=== PATIENT | male | born 1960 | race Caucasian/White ===

== ENCOUNTER 2021-02-19 11:27 | Emergency (ER) | payer MEDICARE ==
[~2021-02-19] VITALS: Ht 175.3 cm; Wt 74.0 kg
[2021-02-19 12:17] VITALS: BP 178/94
--- NOTE | 2021-02-19 12:24 | NUR ---
BS 117
[2021-02-19] MEDS ORDERED: QUET25TA PO (12:36)
[2021-02-19] MEDS ORDERED: GABA300C PO (12:36)
[2021-02-19] MEDS ORDERED: QUET50TA15 PO (14:16)
== END 2021-02-19 14:07 | disposition home or self-care (01) ==
LOC: ER 11:28
DX: F41.9 Anxiety disorder, unspecified (principal); F51.01 Primary insomnia; R42 Dizziness and giddiness; R07.89 Other chest pain; R06.02 Shortness of breath; Z79.899 Other long term (current) drug therapy
CPT/HCPCS: 82948; 99283

== ENCOUNTER 2021-04-14 15:30 | Outpatient (CLI) | payer MEDICARE, MEDICAID ==
[~2021-04-14 15:30] MED LIST: GABA300C PO; QUET50TA15 PO
== END 2021-04-14 23:59 | disposition home or self-care (01) ==
LOC: VAS 15:30
PROVIDERS: ATTEND Surgery
DX: R22.42 Localized swelling, mass and lump, left lower limb (principal)
CPT/HCPCS: 93971

== ENCOUNTER 2022-03-16 13:38 | Outpatient (CLI) | payer MEDICARE, MEDICAID | END 2022-03-16 23:59 | disposition home or self-care (01) | LOC: RAD 13:38 | PROVIDERS: ATTEND Family Medicine | DX: I08.0 Rheumatic disorders of both mitral and aortic valves (principal); M79.89 Other specified soft tissue disorders; R06.89 Other abnormalities of breathing | CPT/HCPCS: 93306 ==

== ENCOUNTER 2022-05-22 17:25 | Emergency (ER) | payer MEDICARE, MEDICAID ==
[~2022-05-22] VITALS: Ht 175.3 cm; Wt 77.3 kg
[2022-05-22 17:31] VITALS: BP 136/81
[2022-05-22] MEDS ORDERED: dexamethasone sod phosphate 10mg/ml inj PO STA (18:26)
[2022-05-22] MEDS ORDERED: PRED20TA PO (18:33)
== END 2022-05-22 18:38 | disposition home or self-care (01) ==
LOC: ER 17:25
DX: M25.531 Pain in right wrist (principal); M25.532 Pain in left wrist; F41.9 Anxiety disorder, unspecified; Z79.899 Other long term (current) drug therapy
CPT/HCPCS: 99283; J1100

== ENCOUNTER 2022-08-22 08:38 | Emergency (ER) | payer MEDICARE, MEDICAID ==
[~2022-08-22] VITALS: Ht 167.6 cm; Wt 77.3 kg
[2022-08-22 08:38] VITALS: BP 141/86
[2022-08-22] MEDS ORDERED: dexamethasone sod phosphate 10mg/ml inj PO STA (09:19)
[2022-08-22] MEDS ORDERED: ketorolac trometh. 30mg/ml inj. IV ONE (09:20)
[2022-08-22] MEDS ORDERED: PRED20TA PO (09:27)
[2022-08-22] MEDS ORDERED: ketorolac trometh inj. 60 MG/2 ML VIAL IM ONE (09:35)
== END 2022-08-22 09:43 | disposition home or self-care (01) ==
LOC: ER 08:38
DX: M25.562 Pain in left knee (principal)
CPT/HCPCS: 96372; 99283; J1100; J1885

== ENCOUNTER 2022-10-16 06:10 | Emergency (ER) | payer MEDICARE, MEDICAID ==
[~2022-10-16] VITALS: Ht 175.3 cm; Wt 78.0 kg
[2022-10-16 06:27] VITALS: BP 103/72; PULSE 89; TEMP 96.7; O2SAT 96
[2022-10-16] MEDS ORDERED: methylPREDNISolone sod succ/PF 40mg inj. IM ONE ×2 (07:50→08:15)
[2022-10-16] MEDS ORDERED: ketorolac trometh inj. 60 MG/2 ML VIAL IM ONE (07:50)
[2022-10-16] MEDS ORDERED: ALLO100T PO (07:57)
[2022-10-16] MEDS ORDERED: COLC0.6T72 PO (07:58)
[2022-10-16] MEDS ORDERED: ketorolac trometh. 30mg/ml inj. IM ONE (08:00)
[2022-10-16] MEDS ORDERED: methylPREDNISolone sod succ 125mg/2ml vial IM ONE (08:00)
[2022-10-16 08:19] VITALS: RESP 16
== END 2022-10-16 08:26 | disposition home or self-care (01) ==
LOC: ER 06:10
DX: M10.9 Gout, unspecified (principal); M19.90 Unspecified osteoarthritis, unspecified site; F41.9 Anxiety disorder, unspecified; Z79.899 Other long term (current) drug therapy
CPT/HCPCS: 73610; 73630; 96372; 99284; J1885; J2920

== ENCOUNTER 2024-06-28 20:54 | Emergency (ER) | payer MEDICARE, MEDICAID ==
[~2024-06-28] VITALS: Ht 172.7 cm; Wt 79.5 kg
[~2024-06-28 20:54] MED LIST changes: +COLC0.6T72 PO
[2024-06-29] MEDS: oxyCODONE IR 5mg (immed. release) tablet PO ONE (01:14)
[2024-06-29] MEDS: fentaNYL/PF 50MCG/1 ML 2ML syringe IV ONE ×4 (02:18→04:05)
[2024-06-29] MEDS: propofol 10mg/ml 20ml vial IV ONE (03:40)
--- NOTE | 2024-06-29 03:52 | RADIOLOGY REPORT ---
Clinical History shoulder injury ANTERIORLY DISLOCATED Comparison None Technique: Two radiographs were submitted for review. Without Contrast ARACELIS BRANDT, [id number] FINDINGS:/IMPRESSION: Anterior inferior dislocation of the right humeral head relative to the glenohumeral fossa. No clear fracture is identified. No radiopaque foreign body seen. This report was electronically signed by Meng Andrews MD on 06/29/2024 3:48:57 AM.
--- NOTE | 2024-06-29 04:56 | Physician Documentation ---
History of Present Illness ~ Chief Complaint: Mechanical Fall Stated Complaint: ARM PAIN Time Seen by MD: 00:36 Primary Medical Doctor: n/a Source: family HPI Patient tripped and fell landing in his right hand complaining of right shoulder pain. No loss of consciousness Tetanus within 5 Years?: Yes Medication Reconciliation Allergies: Coded Allergies: No Known Allergies (Unverified , 06/28/24) Scheduled Colchicine (Colchicine), 1 TAB PO Q12H Gabapentin (Neurontin), 1 CAP PO Q8H Quetiapine Fumarate (Seroquel Xr), 2 TAB PO HS Past Medical History Past Medical History: *ENT*, Arthritis, Anxiety Past Surgical History: no surgical history Alcohol Use: Heavy Drug Use: none Lives with: Family Lives In: Home Review of Systems All Other Systems at this time: Reviewed and Negative Cardiovascular: Denies: chest pain Gastrointestinal: Denies: abdominal pain Neurological: Denies: headache Physical Exam Vital Signs: Temperature: 97.5, Source: Oral, Heart Rate: 55, Respiratory Rate: 14, BP: 115/77, Pulse Oximetry: 99, Weight: 79.540 Oxygen Flow Rate: 2.0 Physical Exam Well-appearing no distress Right shoulder deformity limited range of motion Right knee abrasion and contusion intact range of motion weight-bearing intact Procedures Joint Reduction : Reduction By: myself Conscious Sedation: Yes Pre-Procedure NV Exam: within normal limits Post-Procedure NV Exam: within normal limits Post Reduction Film: joint reduced Tolerated Procedure Well?: yes, no complications Moderate Sedation : Pulmonary Assessment: Unremarkable Neurological Assessment: Unremarkable Cardiovascular Assessment: Unremarkable Other Systems: Unremarkable Hx of sedation difficulty?: No Medications: None ASA Class: II-mild disease Mallampati Score/Visibility of: Class 2-uvula Medication Used: Diprivan, Fentanyl Staff Present: primary nurse, computer technical specialist, orthodontic band maker, other Monitoring: manager cardiac, Spo2, patient on oxygen via N/C, suction ready, crash cart at bedside, BVM ready Tolerated Procedure Well?: yes, no complications Progress Results/Orders Results/Orders Orders - THEO GEORGE MD Shoulder, Complete (Min 2 Vws) (06/29/24 00:52) Shoulder, Complete (Min 2 Vws) (06/29/24 04:50) Completed Orders - THEO GEORGE MD Oxycodone Immed Release Tablet (Oxy Ir T (06/29/24 00:40) Fentanyl/Pf (Fentanyl 0.05 Mg/Ml Syringe (06/29/24 01:45) Shoulder, Complete (Min 2 Vws) (06/29/24 00:52) Fentanyl/Pf (Fentanyl 0.05 Mg/Ml Syringe (06/29/24 01:55) Fentanyl/Pf (Fentanyl 0.05 Mg/Ml Syringe (06/29/24 03:40) Propofol Inj (Diprivan Inj) (06/29/24 03:40) Fentanyl/Pf (Fentanyl 0.05 Mg/Ml Syringe (06/29/24 03:50) Shoulder, Complete (Min 2 Vws) (06/29/24 04:50) Medications Received in ER Medications (Trade) Dose Ordered Sig/Quinn Route PRN Reason Start Time Stop Time Status Last Admin Dose Admin (OXY IR tablet) 5 mg ONCE ONCE PO 06/29/24 00:40 06/29/24 00:56 DC 06/29/24 01:14 5 MG (fentaNYL 0.05 MG/ML syringe) 150 mcg ONCE ONCE IV 06/29/24 01:45 06/29/24 01:50 DC 06/29/24 02:18 150 MCG (fentaNYL 0.05 MG/ML syringe) 100 mcg ONCE ONCE IV 06/29/24 03:40 06/29/24 03:57 DC 06/29/24 04:05 100 MCG Vital Signs 06/28/24 06/29/24 06/29/24 06/29/24 20:58 01:14 02:18 04:05 Temp 97.5 Pulse 54 Resp 14 18 16 16 B/P (MAP) 153/93 Pulse Ox 97 06/29/24 06/29/24 06/29/24 06/29/24 04:27 04:33 04:37 04:52 Pulse 64 57 55 53 Resp 31 31 14 16 B/P (MAP) 131/88 115/77 (90) 126/83 (97) Pulse Ox 99 99 O2 Delivery Nasal Cannula Nasal Cannula Nasal Cannula Room Air O2 Flow Rate 2.0 2.0 2.0 0 06/29/24 06/29/24 05:07 05:19 Pulse 52 52 Resp 23 18 B/P (MAP) 132/72 (92) 106/82 (90) Pulse Ox 98 98 O2 Delivery Room Air Room Air O2 Flow Rate 0 EKG/XRAY/CT/US/VASC/MRI Bone/Soft Tissue X-Ray (Ext.) : Additional Comment Shoulder x-ray independently interpreted shows right shoulder anterior dislocation, no humeral fracture, AC joint intact Medical Decision Making Additional Comment Shoulder dislocation, humeral fracture clavicle fracture Departure Disposition: HOME / SELF CARE / HOMELESS Impression: Primary Impression: Shoulder dislocation Qualified Codes: S43.004A - Unspecified dislocation of right shoulder joint, initial encounter Additional Instructions: Please follow up with Orthopedic surgery. Keep your sling on until directed by Orthopedics. Take Tylenol ibuprofen for pain. Avoid any lifting with the right arm Referrals: NAVA GAN MD Signature Scribe Signature: na Attestation: THEO Mack MD June 29, 2024 04:55
--- NOTE | 2024-06-29 05:23 | RADIOLOGY REPORT ---
CLINICAL INDICATION: s/p reduction TECHNIQUE: DI SHOULDER, COMPLETE (MIN 2 VWS) Comparison: None FINDINGS/IMPRESSION: : The humeral head is high-riding. There is otherwise normal glenohumeral articulation. A Hill-Sachs d eformity is noted along the posterolateral aspect of the humeral head. Mild hypertrophic acromioclavicular arthropathy. The visualized portions of the right lung are clear. No definite rib fractures.
[2024-06-29 05:38] VITALS: BP 110/67; PULSE 55; RESP 14; TEMP 98.6; O2SAT 98
== END 2024-06-29 05:40 | disposition home or self-care (01) ==
LOC: ER 20:55
DX: M19.90 Unspecified osteoarthritis, unspecified site (principal); S43.004A Unspecified dislocation of right shoulder joint, initial encounter; W01.0XXA Fall on same level from slipping, tripping and stumbling without subsequent striking against object, initial encounter; Y93.89 Activity, other specified; Y92.89 Other specified places as the place of occurrence of the external cause; Y99.8 Other external cause status
CPT/HCPCS: 23650; 73030; 99152; 99285; A4565; A4620; J3010; 94760; 96374; 96376

== ENCOUNTER 2024-07-04 13:03 | Emergency (ER) | payer MEDICARE, MEDICAID ==
[~2024-07-04] VITALS: Ht 172.7 cm; Wt 75.9 kg
[2024-07-04 13:19] VITALS: TEMP 98
--- NOTE | 2024-07-04 14:00 | Physician Documentation ---
History of Present Illness ~ Chief Complaint: Shoulder pain Stated Complaint: R SHOULDER DISLOCATION Time Seen by MD: 14:00 Primary Medical Doctor: n/a HPI 64-year-old male presenting with right shoulder pain The patient tells me that he was seen here a couple of days ago, had a right shoulder dislocation after a fall. It was reduced under sedation. He was discharged with a sling and orthopedic follow-up. Today, he took his sling off to put on his shoes to go to the doctors Clinic, and when he reached down, he thinks that his shoulder popped out again. He reports pain and limited mobility to his right shoulder. He reports some mild numbness to the forearm but states this is chronic. No new numbness or weakness to the hand. Tetanus within 5 years?: Yes Medication Reconciliation Allergies: Coded Allergies: No Known Allergies (Unverified , 06/28/24) Scheduled Colchicine (Colchicine), 1 TAB PO Q12H Gabapentin (Neurontin), 1 CAP PO Q8H Quetiapine Fumarate (Seroquel Xr), 2 TAB PO HS Past Medical History Past Medical History: *ENT*, Arthritis, Anxiety Past Surgical History: no surgical history Alcohol Use: Heavy Drug Use: none Lives with: Family Lives In: Home Review of Systems Neurological: Denies: right sided numbness Musculoskeletal: Reports: joint pain Physical Exam Vital Signs: Temperature: 98.0, Heart Rate: 78, Respiratory Rate: 15, BP: 134/91, Pulse Oximetry: 96, Weight: 75.910 Oxygen Flow Rate: 0 Physical Exam General: This is a uncomfortable appearing middle-aged man, holding his right arm in an odd position HEENT: Atraumatic, oropharynx is moist Heart: Regular rate and rhythm, normal-appearing peripheral perfusion Lungs: normal work of breathing, normal oxygen saturation on room air Extremities: Right upper extremity: The patient has an obvious deformity to the shoulder, appears consistent with a dislocation. Strong radial pulse. N ormal sensation to light touch in the hand, normal boatswain mate strength to the right hand. Neuro: Alert and oriented Psychiatric: Calm and cooperative with exam Procedures Joint Reduction Joint Reduction : Reduction By: myself Conscious Sedation: Yes Medications/Dose: Propofol 130 mg Reduction Attempts: 1 Pre-Procedure NV Exam: within normal limits Post-Procedure NV Exam: within normal limits Post Reduction Film: joint reduced, good alignment Tolerated Procedure Well?: yes, no complications Procedure Note Using traction and counter traction, the shoulder joint was easily reduced. He was placed in a splint. The patient tolerated well. No complications. Moderate Sedation : Pulmonary Assessment: Unremarkable Neurological Assessment: Unremarkable Cardiovascular Assessment: Unremarkable Medications: see reconiliation form ASA Class: II-mild disease Medication Used: Diprivan Staff Present: primary nurse, respiratory therapy instructor, other Monitoring: monitor and storage bin tender, Spo2, suction ready, BVM ready Tolerated Procedure Well?: yes, no complications Procedure Note Total of 130 mg of propofol given, with good sedation obtained. No complications. Progress Results/Orders Results/Orders Orders - GRISELDA CHAMBERLAIN MD Shoulder, Complete (Min 2 Vws) (07/04/24 13:30) Shoulder, Complete (Min 2 Vws) (07/04/24 17:04) Completed Orders - GRISELDA CHAMBERLAIN MD Shoulder, Complete (Min 2 Vws) (07/04/24 13:30) Ondansetron Inj. (Zofran 4mg/2ml Vial) (07/04/24 14:05) Propofol Inj (Diprivan Inj) (07/04/24 14:45) Morphine 4mg/Ml Inj. (Morphine Inj.) (07/04/24 14:50) Shoulder, Complete (Min 2 Vws) (07/04/24 17:04) Hydrocodone/Apap 5/325mg Tab ([place] 5/32 (07/04/24 18:30) Medications Received in ER Medications (Trade) Dose Ordered Sig/Quinn Route PRN Reason Start Time Stop Time Status Last Admin Dose Admin (Zofran 4mg/2ml vial) 4 mg ONCE ONCE IV 07/04/24 14:05 07/04/24 14:06 DC 07/04/24 14:55 4 MG (morphine inj.) 4 mg ONCE ONCE IV 07/04/24 14:50 07/04/24 14:51 DC 07/04/24 14:55 4 MG ([place] 5/325mg tablet) 1 tab ONCE ONCE PO 07/04/24 18:30 07/04/24 18:31 DC 07/04/24 18:38 1 TAB Vital Signs 07/04/24 07/04/24 07/04/24 07/04/24 13:19 14:30 14:55 15:06 Temp 98.0 Pulse 78 69 Resp 15 16 16 16 B/P (MAP) 134/91 96/68 (77) Pulse Ox 96 96 O2 Flow Rate 0 0 07/04/24 07/04/24 07/04/24 07/04/24 15:57 16:49 16:58 17:15 Pulse 65 65 53 57 Resp 20 24 13 18 B/P (MAP) 114/81 (92) 104/69 95/65 (75) 115/84 (94) Pulse Ox 99 98 98 O2 Delivery Nasal Cannula Nasal Cannula Room Air O2 Flow Rate 2.0 2.0 0 07/04/24 07/04/24 18:29 18:38 Resp 16 B/P (MAP) 114/74 Pulse Ox 96 Medical Decision Making Differential Dx:Considerations: Include: AC separation, arthritis, Dislocation, Fracture: Humerus, Fracture: Clavicle, Neurovascular Injury, Rotator cuff injury Additional Comments The patient presents with a recurrent shoulder dislocation. X-ray confirms dislocation as suspected. No other associated injuries or concerns. He was sedated with propofol as above in the joint was successfully reduced. He was placed in a sling. He was given home care instructions and will follow up in the Orthopedic Clinic. Departure Time of Disposition: 17:47 Disposition: 01 HOME / SELF CARE / HOMELESS Impression: Primary Impression: Shoulder dislocation Condition: Improved Discharge Instructions: Shoulder Dislocation Referrals: NO PRIMARY CARE PROVIDER (PCP) Education Educated: Patient Educated regarding: diagnosis, need for follow up Signature Scribe Signature: na Attestation: GRISELDA Brown MD July 04, 2024 14:00
--- NOTE | 2024-07-04 14:08 | RADIOLOGY REPORT ---
CLINICAL INDICATION: RIGHT SHOULDER PAIN, POSSIBLE DISLOCATION TECHNIQUE: 2 radiographic views of the right shoulder were obtained. Comparison: DI SHOULDER, COMPLETE (MIN 2 VWS) on DOS: 06/29/24 FINDINGS/IMPRESSION: There is right anterior inferior shoulder dislocation . The defect over the posterolateral aspect of the right humeral head noted on prior imaging is not well-demonstrated on current imaging. The visualized lungs are clear. Bronchovascular crowding due to low lung volumes.
[2024-07-04] MEDS: ondansetron/PF 4mg/2ml inj IV ONE (14:55)
[2024-07-04] MEDS: morphine 4 MG/ML inj SYRINge IV ONE (14:55)
[2024-07-04] MEDS: propofol 10mg/ml 20ml vial IV ONE (16:47)
[2024-07-04 17:15] VITALS: PULSE 57
--- NOTE | 2024-07-04 17:35 | RADIOLOGY REPORT ---
CLINICAL INDICATION: POST REDUCTION TECHNIQUE: 1 radiographic views of the right shoulder were obtained. Comparison: DI SHOULDER, COMPLETE (MIN 2 VWS) on DOS: 07/04/24, DI SHOULDER, COMPLETE (MIN 2 VWS) on D OS: 06/29/24 FINDINGS/IMPRESSION: Interval reduction of the anteriorly dislocated shoulder with the shoulder joint in anatomic alignmen t. Redemonstration of bony defect over the posterolateral humeral head.
[2024-07-04 18:29] VITALS: BP 114/74; O2SAT 96
[2024-07-04 18:38] VITALS: RESP 16
[2024-07-04] MEDS: HYDROcodone/acetaminophen 5mg/325mg tablet PO ONE (18:38)
== END 2024-07-04 18:40 | disposition home or self-care (01) ==
LOC: ER 13:03
DX: S43.004A Unspecified dislocation of right shoulder joint, initial encounter (principal); M19.90 Unspecified osteoarthritis, unspecified site; F41.9 Anxiety disorder, unspecified; W19.XXXA Unspecified fall, initial encounter; Y93.89 Activity, other specified; Y92.89 Other specified places as the place of occurrence of the external cause; Y99.8 Other external cause status
CPT/HCPCS: 23650; 73030; 96374; 96375; 99152; 99285; A4620; J2270; J2405; J7030; L3650

== ENCOUNTER 2024-11-11 06:57 | Emergency (ER) | payer MEDICARE, MEDICAID ==
[~2024-11-11] VITALS: Ht 175.3 cm; Wt 80.1 kg
[2024-11-11 07:01] VITALS: TEMP 97.6
--- NOTE | 2024-11-11 07:44 | RADIOLOGY REPORT ---
EXAM: DI SHOULDER, COMPLETE (MIN 2 VWS) CLINICAL INDICATION: LT.Shoulder Pain AFTER FALL TECHNIQUE: DI SHOULDER, COMPLETE (MIN 2 VWS) Comparison: DI SHOULDER, COMPLETE (MIN 2 VWS) on DOS: 07/04/24, DI SHOULDER, COMPLETE (MIN 2 VWS) on DOS: 07/04/24, DI SHOULDER, COMPLETE (MIN 2 VWS) on DOS: 06/29/24, DI SHOULDER LTD 1 VIEW ONLY on DOS: 06/29/24 FINDINGS/IMPRESSION: There is no evidence of acute fracture or dislocation. The visualized joint space is well maintained. The alignment is anatomical. There is no radiopaque foreign body.
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
[2024-11-11] MEDS: ibuprofen tablet 400 MG TABLET PO ONE (09:38)
[2024-11-11 09:55] VITALS: BP 153/78; PULSE 53; RESP 16; O2SAT 94
[2024-11-11] MEDS ORDERED: HYDR-3965 PO (09:55)
--- NOTE | 2024-11-11 10:07 | RADIOLOGY REPORT ---
EXAM: DI CHEST,SINGLE VIEW Indication: trauma w/ L upper chest wall pain Technique: Single frontal view of the chest was obtained Comparison: None FINDINGS: Lines and Tubes: None Lungs: No focal consolidation. Pleura: No effusion. No pneumothorax. Cardiomediastinal contours: Unremarkable Bones: No acute osseous abnormality. IMPRESSION: No acute cardiopulmonary disease.
== END 2024-11-11 10:15 | disposition home or self-care (01) ==
LOC: ER 06:57
DX: S43.152A Posterior dislocation of left acromioclavicular joint, initial encounter (principal); M19.90 Unspecified osteoarthritis, unspecified site; F41.9 Anxiety disorder, unspecified; Z79.899 Other long term (current) drug therapy; V19.9XXA Pedal cyclist (driver) (passenger) injured in unspecified traffic accident, initial encounter; Y93.55 Activity, bike riding; Y92.89 Other specified places as the place of occurrence of the external cause; Y99.8 Other external cause status
CPT/HCPCS: 71045; 73030; 99284; A4565